=== PATIENT | male | born 1980 | race Caucasian/White ===

== ENCOUNTER 2017-01-21 01:00 | Emergency (ER) | payer SELFPAY ==
[~2017-01-21] VITALS: Ht 182.9 cm; Wt 122.5 kg
== END 2017-01-21 02:00 | disposition short-term general hospital (02) ==
LOC: ER 01:00
DX: J20.9 Acute bronchitis, unspecified (principal); J45.909 Unspecified asthma, uncomplicated; F17.210 Nicotine dependence, cigarettes, uncomplicated
CPT/HCPCS: J2930